=== PATIENT | male | born 1970 | race African-American/Black ===

== ENCOUNTER 2017-09-14 00:30 | Inpatient (IN) | payer SELFPAY ==
[~2017-09-14] VITALS: Ht 182.9 cm; Wt 76.2 kg
[2017-09-14] VITALS (8 sets, daily range): BP systolic 110–141; BP diastolic 69–92
[2017-09-14] MEDS ORDERED: MORPHINE SULFATE 4 MG/ML CPJ (NOT FOR IM USE) IV STA (01:01)
[2017-09-14] MEDS ORDERED: SODIUM CHLORIDE 0.9% 1,000 ML IV ONE (01:01)
[2017-09-14] MEDS ORDERED: ONDANSETRON HCL 4MG/2ML VIAL IV STA (01:01)
[2017-09-14] MEDS ORDERED: NITROGLYCERIN OINT 1GM/INCH UDPKT TD ONE (01:15)
[2017-09-14] MEDS ORDERED: ASPIRIN 81MG TABLET PO ONE (01:15)
[2017-09-14 01:43] LABS: BASOPHILS % 0.4 % (0.0-2.0); EOSINOPHILS % 1.6 % (0.0-5.0); HEMATOCRIT. 41.6 % (42.0-52.0); HEMOGLOBIN. 14.5 g/dL (14.0-18.0); LYMPHOCYTES % 15.5 % (20.0-50.0); MEAN CORPUSCULAR HEMOGLOBIN 32.4 pg (28.0-32.0); MEAN CORPUSCULAR VOLUME 92.7 fL (80.0-94.0); MEAN PLATELET VOLUME 8.1 fl (7.4-10.4); MONOCYTES % 6.4 % (2.0-8.0); NEUTROPHILS % 76.1 % (40.0-76.0); PLATELET 266 x1000/uL (130-400); RED BLOOD CELL COUNT 4.48 mill/uL (4.7-6.1); RED CELL DISTRIBUTION WIDTH 13.5 % (11.6-14.6)
[2017-09-14 02:18] LABS: CARBON DIOXIDE 28 mEq/L (21-32); CHLORIDE 105 mEq/L (98-107); ETHANOL BLOOD < 10 mg/dL; TROPONIN I < 0.02 ng/mL (0.00-0.04)
[2017-09-14 02:20] LABS: *AMPHETAMINES SCREEN URINE NEGATIVE (NEGATIVE); *BARBITURATES SCREEN URINE NEGATIVE (NEGATIVE); *BENZODIAZEPINES SCREEN URINE NEGATIVE (NEGATIVE); *COCAINE SCREEN URINE NEGATIVE (NEGATIVE); CANNABINOID URINE SCREEN PRESUMTIVE POSITIVE (NEGATIVE); METHADONE URINE SCREEN NEGATIVE (NEGATIVE); OPIATES URINE SCREEN NEGATIVE (NEGATIVE); PHENCYCLIDINE URINE SCREEN NEGATIVE (NEGATIVE)
[2017-09-14] MEDS ORDERED: MORPHINE SULFATE 4 MG/ML CPJ (NOT FOR IM USE) IV PRN (04:45)
[2017-09-14] MEDS: NITROGLYCERIN OINT 1GM/INCH UDPKT TD SCH ×2 (05:40→14:00)
[2017-09-14] MEDS ORDERED: ENOXAPARIN 40MG/0.4ML SYR SUBCUT SCH (09:00)
[2017-09-14] MEDS ORDERED: ASPIRIN 325MG EC TABLET PO SCH (09:00)
[2017-09-14 10:23] LABS: TROPONIN I 0.04 ng/mL (0.00-0.04)
[2017-09-14] MEDS ORDERED: REGADENOSON 0.4 MG/5 ML IV NR (10:30)
[2017-09-14] MEDS ORDERED: REGADENOSON 0.4 MG/5 ML IV ONE (12:53)
[2017-09-14] MEDS ORDERED: SODIUM CHLORIDE 0.9% 10ML VIAL ONE (13:59)
[2017-09-14] MEDS ORDERED: ASPI-1158 PO (14:42)
[2017-09-14] MEDS ORDERED: LISI2.5T47 PO (14:42)
[2017-09-14] MEDS ORDERED: ATOR20TA65 PO (14:42)
== END 2017-09-14 18:10 | disposition home or self-care (01) | DRG 203 ==
LOC: ER 00:30 → 8WST 02:04 → ENRESERV 02:48
PROVIDERS: ADMIT Internal Medicine; ATTEND Internal Medicine
DX: R07.89 Other chest pain (principal); E78.5 Hyperlipidemia, unspecified; F17.210 Nicotine dependence, cigarettes, uncomplicated; M19.90 Unspecified osteoarthritis, unspecified site; F12.90 Cannabis use, unspecified, uncomplicated; Z72.89 Other problems related to lifestyle; Z82.49 Family history of ischemic heart disease and other diseases of the circulatory system
CPT/HCPCS: 36415; 71010; 78452; 80053; 80061; 80305; 83036; 83690; 83880; 84484; 85025; 85379; 93005; 93017; 93306; 96361; 96374; 96375; 99285; A4216; A9500; G0482; J1650; J2270; J2405; J2785; J7030